=== PATIENT | female | born 1955 | race Caucasian/White ===

== ENCOUNTER → 2024-10-01 07:29 | Outpatient (REF) | payer MEDICARE, OTHER, SELFPAY | LOC: RAD 07:29 | PROVIDERS: ATTENDING PHYSICIAN Nurse Practitioner Adult Health; FAMILY PHYSICIAN Nurse Practitioner Adult Health | DX: R63.4 Abnormal weight loss (principal) | CPT/HCPCS: 71046; 76830; 76856 ==

== ENCOUNTER 2024-10-15 06:19 | Day surgery (SDC) | payer MEDICARE, OTHER, SELFPAY | END 2024-10-15 11:35 | disposition home or self-care (01) | LOC: GI 06:19 | PROVIDERS: ATTENDING PHYSICIAN Internal Medicine Gastroenterology | PROC: 0DBK8ZX Excision of Ascending Colon, Via Natural or Artificial Opening Endoscopic, Diagnostic (ICD-10-PCS; 2024-10-15) | PROC: 0DB58ZX Excision of Esophagus, Via Natural or Artificial Opening Endoscopic, Diagnostic (ICD-10-PCS; 2024-10-15) | PROC: 0DB68ZX Excision of Stomach, Via Natural or Artificial Opening Endoscopic, Diagnostic (ICD-10-PCS; 2024-10-15) | PROC: 0DB98ZX Excision of Duodenum, Via Natural or Artificial Opening Endoscopic, Diagnostic (ICD-10-PCS; 2024-10-15) | DX: K44.9 Diaphragmatic hernia without obstruction or gangrene (principal); K90.0 Celiac disease; Z12.11 Encounter for screening for malignant neoplasm of colon; D12.2 Benign neoplasm of ascending colon; K64.8 Other hemorrhoids; K29.50 Unspecified chronic gastritis without bleeding | CPT/HCPCS: 45380; 43239; 88305; 88342 ==

== ENCOUNTER → 2025-06-09 09:27 | Outpatient (REF) | payer MEDICARE, OTHER, SELFPAY | LOC: WDC 09:27 | PROVIDERS: ATTENDING PHYSICIAN Nurse Practitioner Adult Health | DX: Z12.31 Encounter for screening mammogram for malignant neoplasm of breast (principal); Z78.0 Asymptomatic menopausal state | CPT/HCPCS: 77063; 77067; 77080 ==